=== PATIENT | female | born 1985 | race African-American/Black ===

== ENCOUNTER 2016-05-07 18:11 | Emergency (ER) | payer MEDICAID ==
[~2016-05-07] VITALS: Ht 154.9 cm; Wt 100.0 kg
[~2016-05-07 18:11] MED LIST: HYDR-3533 PO; SSD1CRE TOP
[2016-05-07 18:13] VITALS: BP 149/84; PULSE 80; RESP 16; TEMP 98.2; O2SAT 100
[2016-05-07] MEDS ORDERED: MULTTAB67 PO (22:41)
[2016-05-07 23:51] LABS: BACTERIA, URINE RARE /hpf; BLOOD, URINE MOD (NEG); COMMENT (UR) CULTURE INDICATED; CULTURE IF INDICATED CULTURE INDICATED; GLUCOSE,URINE NEG (NEG); HYALINE CAST, URINE 2 /lpf (RARE); KETONE, URINE TRACE mg/dL (NEG); MUCUS URINE FEW /lpf (OCC); NITRITE,URINE NEG (NEG); PH, URINE 5.5 (5.0-8.5); SQUAMOUS EPITHELIAL CELL URINE 1 /hpf (0-5); URINE COLOR YELLOW (YELLW/STRAW)
[2016-05-08 00:21] LABS: BETA HCG QUANT 2953 MIU/ML (0-5)
--- NOTE | 2016-05-08 00:36 | PD ---
HPI Chief Complaint: Related Problem Time Seen by Provider: 22:53 Travel History International Travel<30 days: No Contact w/Intl Traveler<30days: No Traveled to known affect area: No History of Present Illness HPI So 30 year-old woman presents to the emergency department complaining of some mild bright red blood per vagina. She is 7 para 3, 0, 3, 3 with 2 previous miscarriages and 1 . Last menstrual period was March 12. States she's had spotting, worse after sex, past several days. She also some mid back pain. No vaginal discharge. She otherwise had been feeling generally well and healthy. History Past Medical History Narrative Medical Rh+ Influenza Vaccination: No LMP: 03/12/16 : 5 Para: 2 Social History Alcohol Use: No Tobacco Use: Yes ( smoke 1/2 PPD) Allergies-Medications (Allergen,Severity, Reaction): Coded Allergies: No Known Allergies (Verified , 05/07/16) Reported Meds & Prescriptions Reported Meds & Active Scripts Active Reported Multiple Vitamin 1 Tab 1 Tab PO DAILY Review of Systems Except as stated in HPI: all other systems reviewed are Neg Physical Exam Narrative GENERAL: Well-appearing 30 year-old woman, no acute distress. SKIN: Warm and dry. NECK: Trachea midline. No JVD. CARDIOVASCULAR: Regular rate and rhythm. No murmur appreciated. RESPIRATORY: No accessory muscle use. Clear to auscultation. Breath sounds equal bilaterally. GASTROINTESTINAL: Abdomen soft, non-tender, nondistended. Hepatic and splenic margins not palpable. MUSCULOSKELETAL: No obvious deformities. No edema. NEUROLOGICAL: Awake and alert. No obvious cranial nerve deficits. Motor grossly within normal limits. Normal speech. PSYCHIATRIC: Appropriate mood and affect; insight and judgment normal. PELVIC: Normal normal external female genitalia. Dark blood in the vaginal vault. No significant tenderness. Minimal uterine enlargement. Data Data Last Documented VS Vital Signs Date Time Temp Pulse Resp B/P Pulse Ox O2 Delivery O2 Flow Rate FiO2 05/07/16 18:13 98.2 80 16 149/84 100 Orders Beta Hcg (Quant/Titer) (05/07/16 22:34) Gc And Chlamydia Pcr (05/07/16 22:34) Wet Prep Profile (05/07/16 22:34) Urinalysis - C+S If Indicated (05/07/16 22:34) Ed Poc Ultrasound (05/07/16 22:34) Urine Culture (05/07/16 22:40) Labs Laboratory Tests Test 05/07/16 05/07/16 22:40 23:33 Urine Color YELLOW Urine Turbidity CLEAR Urine pH 5.5 Urine Specific [place] 1.028 Urine Protein NEG mg/dL Urine Glucose (UA) NEG mg/dL Urine Ketones TRACE mg/dL Urine Occult Blood MOD Urine Nitrite NEG Urine Bilirubin NEG Urine Urobilinogen LESS THAN 2.0 MG/DL Urine Leukocyte Esterase MOD Urine RBC 7 /hpf Urine WBC 9 /hpf Urine Squamous Epithelial 1 /hpf Cells Urine Bacteria RARE /hpf Urine Hyaline Casts 2 /lpf Urine Mucus FEW /lpf Microscopic Urinalysis Comment CULTURE INDICATED Human Chorionic Gonadotropin, 2953 MIU/ML Quant Clue Cells (Wet Prep) PRESENT Vaginal Trichomonas (Wet Prep) PRESENT Vaginal Yeast (Wet Prep) NONE SEEN MDM Medical Decision Making Medical Screen Exam Complete: Yes Emergency Medical Condition: Yes Interpretation(s) LABS: UA with some pyuria and hematuria. HCG 2953 What prep positive for clue cells, Trichomonas GC and chlamydia pending Differential Diagnosis IUP, ectopic, miscarriage, cervicitis, trichomoniasis, other Narrative Course Medical decision-making new para 30 year-old woman presents emergent from with some spotting, and the setting of being about 78 weeks . She looks overall well. Bedside ultrasound shows probable intrauterine gestation, without definite yolk sac or pole. She is positive for trichomonas. Recommend repeat labs in 48 hours. Diagnosis Primary Impression: Additional Impression: Trichomoniasis Additional Instructions: Return the emergency department 48 hours for repeat hCG. Follow-up with your project management advisor. Return to the emergency department sooner for any new or worsening symptoms. Med/Other Pt SpecificInfo: Prescription(s) given Disposition: 01 DISCHARGE HOME Condition: Stable Craig Dillard MD May 08, 2016 00:36
[2016-05-08] MEDS ORDERED: metroNIDAZOLE 500 MG TAB PO ONE (00:45)
[2016-05-08 03:48] LABS: CHLAMYDIA PCR NOT DETECTED (NOT DETECT); NEISSERIA PCR NOT DETECTED (NOT DETECT)
== END 2016-05-08 01:03 | disposition home or self-care (01) ==
LOC: NEPE 18:11
DX: O26.851 Spotting complicating pregnancy, first trimester (principal); A59.9 Trichomoniasis, unspecified; F17.210 Nicotine dependence, cigarettes, uncomplicated; R82.90 Unspecified abnormal findings in urine
CPT/HCPCS: 81001; 84702; 87086; 87210; 87491; 87591; 99284

== ENCOUNTER 2016-08-13 11:33 | Emergency (ER) | payer MEDICAID ==
[~2016-08-13] VITALS: Ht 154.9 cm; Wt 105.0 kg
[~2016-08-13 11:33] MED LIST changes: -HYDR-3533 PO; +MULTTAB67 PO; -SSD1CRE TOP
[2016-08-13 11:36] VITALS: BP 113/60; PULSE 85; TEMP 98.5; O2SAT 99
--- NOTE | 2016-08-13 11:50 | PD ---
HPI Chief Complaint: Product Line Manager Problem/Complaint Time Seen by Provider: 11:49 Travel History International Travel<30 days: No Contact w/Intl Traveler<30days: No Traveled to known affect area: No History of Present Illness HPI 30-year-old female came to the emergency room with history of spotting on and off for past 1 week. Patient did a home test one month ago and is positive. She does not see her OB till next week. Patient says one week ago she had started spotting but after 2 days it stopped. Last night she had vaginal intercourse this morning noticed slight pink vaginal discharge. She was concerned regarding the since she had a miscarriage 4 months ago. Patient is A3. Her last menstrual cycle was May 26. No history of cramping. She is otherwise a healthy person. Vital signs were within normal limits. [facility] Past Medical History Narrative Medical List of her past medical, surgical, social and family history is reviewed from the nursing note. Asthma: Yes Autoimmune Disease: No Anxiety: Yes Cancer: No Chemotherapy: No Diabetes: No Diminished Hearing: No Immune Disorder: No Implanted Vascular Access Dvce: No Radiation Therapy: No ?: : 5 Para: 2 Miscarriage: 2 : 0 Past Surgical History AICD: No Arteriovenous Shunt: No Cholecystectomy: Yes Insulin Pump: No Joint Replacement: No Pacemaker: No Social History Alcohol Use: No Tobacco Use: Yes ( smoke 1/2 PPD) Substance Use: No Allergies-Medications (Allergen,Severity, Reaction): Coded Allergies: No Known Allergies (Verified , 08/13/16) Comments No known drug allergies. Reported Meds & Prescriptions Reported Meds & Active Scripts Active Dha (Docosahexaenoic Acid) 200 Mg Cap 1 Tab PO DAILY Narrative Medication List of her home medications reviewed from the nursing note. Review of Systems Except as stated in HPI: all other systems reviewed are Neg Physical Exam Narrative GENERAL: Awake, alert, no obvious distress SKIN: Focused skin assessment warm/dry. HEAD: Atraumatic. Normocephalic. EYES: Pupils equal and round. No scleral icterus. No injection or drainage. ENT: No nasal bleeding or discharge. Mucous membranes pink and moist. NECK: Trachea midline. No JVD. CARDIOVASCULAR: Regular rate and rhythm. No murmur appreciated. RESPIRATORY: No accessory muscle use. Clear to auscultation. Breath sounds equal bilaterally. GASTROINTESTINAL: Abdomen soft, non-tender, nondistended. Hepatic and splenic margins not palpable. MUSCULOSKELETAL: No obvious deformities. No clubbing. No cyanosis. No edema. NEUROLOGICAL: Awake and alert. No obvious cranial nerve deficits. Motor grossly within normal limits. Normal speech. PSYCHIATRIC: Appropriate mood and affect; insight and judgment normal. Data Data Last Documented VS Vital Signs Date Time Temp Pulse Resp B/P Pulse Ox O2 Delivery O2 Flow Rate FiO2 08/13/16 11:36 98.5 85 113/60 99 Orders Beta Hcg (Quant/Titer) (08/13/16 12:15) Complete Blood Count With Diff (08/13/16 12:15) Basic Metabolic Panel (Bmp) (08/13/16 12:15) Type And Screen (08/13/16 12:15) Urinalysis - C+S If Indicated (08/13/16 12:15) Ed Poc Ultrasound (08/13/16 12:18) Labs Laboratory Tests Test 08/13/16 08/13/16 12:45 13:03 Urine Color YELLOW Urine Turbidity HAZY Urine pH 7.0 Urine Specific [place] 1.024 Urine Protein TRACE mg/dL Urine Glucose (UA) NEG mg/dL Urine Ketones NEG mg/dL Urine Occult Blood MOD Urine Nitrite NEG Urine Bilirubin NEG Urine Urobilinogen LESS THAN 2.0 MG/DL Urine Leukocyte Esterase NEG Urine RBC LESS THAN 1 /hpf Urine WBC LESS THAN 1 /hpf Urine Squamous Epithelial 3 /hpf Cells Urine Mucus FEW /lpf Microscopic Urinalysis Comment CULT NOT INDICATED White Blood Count 7.3 TH/MM3 Red Blood Count 4.70 MIL/MM3 Hemoglobin 12.5 GM/DL Hematocrit 38.0 % Mean Corpuscular Volume 80.7 FL Mean Corpuscular Hemoglobin 26.5 PG Mean Corpuscular Hemoglobin 32.8 % Concent Red Cell Distribution Width 14.5 % Platelet Count 162 TH/MM3 Mean Platelet Volume 10.3 FL Neutrophils (%) (Auto) 57.3 % Lymphocytes (%) (Auto) 33.4 % Monocytes (%) (Auto) 6.3 % Eosinophils (%) (Auto) 2.5 % Basophils (%) (Auto) 0.5 % Neutrophils # (Auto) 4.2 TH/MM3 Lymphocytes # (Auto) 2.5 TH/MM3 Monocytes # (Auto) 0.5 TH/MM3 Eosinophils # (Auto) 0.2 TH/MM3 Basophils # (Auto) 0.0 TH/MM3 CBC Comment DIFF FINAL Differential Comment Sodium Level 137 MEQ/L Potassium Level 3.8 MEQ/L Chloride Level 106 MEQ/L Carbon Dioxide Level 25.9 MEQ/L Anion Gap 5 MEQ/L Blood Urea Nitrogen 8 MG/DL Creatinine 0.58 MG/DL Estimat Glomerular Filtration 146 ML/MIN Rate Random Glucose 81 MG/DL Calcium Level 8.9 MG/DL Human Chorionic Gonadotrop[place], [address]19 MIU/ML Quant Blood Type B POSITIVE Antibody Screen NEGATIVE MDM Medical Decision Making Medical Screen Exam Complete: Yes Emergency Medical Condition: Yes Medical Record Reviewed: Yes Differential Diagnosis Threatened miscarriage, ectopic Narrative Course 2 PM blood test results were back and within normal limit. Patient is B+ and hence does not need RhoGAM. I explained to her about the diagnosis of threatened miscarriage. She was recommended to return to the ER 48 hours later to get a repeat beta hCG done. I answered all her questions to the best of my ability. Patient will be discharged home. Procedures Procedure Narrative Emergency Department Pelvic ultrasound was performed with patient consent. The curvilinear probe was used in the transverse and sagittal views within the suprapubic region revealing single, live intrauterine . heart rate was 169 bpm. See this measures 8 weeks 2 days by crown rump length. EKG Prior to Arrival: No Diagnosis Primary Impression: Threatened miscarriage Additional Impression: First trimester Referrals: Primary Care Physician Additional Instructions: Please return to the emergency room in 48 hours to get a repeat beta hCG blood test done. Follow-up with your OB. Take the medication as per the prescription direction. No tampons, vaginal intercourse or anything in the vagina until you have been seen by the OB. Do not lift anything heavy, drink lots of fluid. Med/Other Pt SpecificInfo: Prescription(s) given Scripts Docosahexaenoic Acid ( Dha)200 Mg Cap1 Tab PO DAILY #30 Prov:Kj Selby MD 08/13/16 Disposition: 01 DISCHARGE HOME Condition: Stable Kj Selby MD August 13, 2016 11:50
[2016-08-13 13:28] LABS: AUTOMATED NEUTROPHIL # 4.2 TH/MM3 (1.8-7.7); BASOPHIL % 0.5 % (0.0-2.0); EOSINOPHIL # 0.2 TH/MM3 (0-0.4); EOSINOPHIL % 2.5 % (0.0-4.0); HEMO FLAGS DIFF FINAL; LYMPH % 33.4 % (9.0-44.0); LYMPHOCYTE # 2.5 TH/MM3 (1.0-4.8); MEAN CELL VOLUME 80.7 FL (80.0-100.0); MEAN CORPUSCULAR HEMOGLOBIN 26.5 PG (27.0-34.0); MEAN CORPUSCULAR HGB CONC 32.8 % (32.0-36.0); MONO % 6.3 % (0.0-8.0); NEUT % 57.3 % (16.0-70.0); PLATELET COUNT 162 TH/MM3 (150-450); RED CELL DISTRIBUTION WIDTH 14.5 % (11.6-17.2); WHITE BLOOD COUNT 7.3 TH/MM3 (4.0-11.0)
[2016-08-13 13:32] LABS: BLOOD, URINE MOD (NEG); GLUCOSE,URINE NEG (NEG); KETONE, URINE NEG (NEG); MUCUS URINE FEW /lpf (OCC); NITRITE,URINE NEG (NEG); SQUAMOUS EPITHELIAL CELL URINE 3 /hpf (0-5); URINE COLOR YELLOW (YELLW/STRAW)
[2016-08-13 13:35] LABS: COMMENT (UR) CULT NOT INDICATED; CULTURE IF INDICATED CULT NOT INDICATED
[2016-08-13 13:46] LABS: BICARBONATE 25.9 MEQ/L (21.0-32.0); POTASSIUM 3.8 MEQ/L (3.5-5.1)
[2016-08-13] MEDS ORDERED: DOCO200C PO (14:15)
== END 2016-08-13 14:24 | disposition home or self-care (01) ==
LOC: NEPD 11:33
DX: O20.0 Threatened abortion (principal); F17.200 Nicotine dependence, unspecified, uncomplicated; J45.909 Unspecified asthma, uncomplicated; Z3A.08 8 weeks gestation of pregnancy
CPT/HCPCS: 80048; 81001; 84702; 85025; 86850; 86900; 86901; 99284

== ENCOUNTER 2017-01-14 14:25 | Emergency (ER) | payer MEDICAID ==
[~2017-01-14] VITALS: Ht 154.9 cm; Wt 100.0 kg
[~2017-01-14 14:25] MED LIST changes: +DOCO200C PO; -MULTTAB67 PO
[2017-01-14 14:28] VITALS: BP 144/99; PULSE 79; RESP 15; TEMP 98.4; O2SAT 98
--- NOTE | 2017-01-14 15:07 | PD ---
HPI Chief Complaint: Headache Time Seen by Provider: 15:07 Travel History International Travel<30 days: No Contact w/Intl Traveler<30days: No Traveled to known affect area: No History of Present Illness HPI 31-year-old female came to the emergency room with history of headache. Patient says it hurts everywhere especially the top and front of her head. The headache has been there for 5 days. It started off slowly and now everything hurts. She complains of photophobia. No fever or chills. No history of nausea vomiting. No history of neck stiffness. Patient does not get headaches very frequently. Vital signs were stable. Upon asking she said there could be a chance of being . [facility] Past Medical History Narrative Medical List of her past medical, surgical, social and family history is reviewed from the nursing note. Asthma: Yes (as a child) Autoimmune Disease: No Anxiety: Yes Cancer: No Chemotherapy: No Diabetes: No Diminished Hearing: No Immune Disorder: No Implanted Vascular Access Dvce: No Radiation Therapy: No ?: Unknown LMP: NOV 27, 2016 : 5 Para: 2 Miscarriage: 2 : 0 Past Surgical History AICD: No Arteriovenous Shunt: No Cholecystectomy: Yes Insulin Pump: No Joint Replacement: No Pacemaker: No Social History Alcohol Use: No Tobacco Use: Yes ( smoke 1/2 PPD) Substance Use: No Allergies-Medications (Allergen,Severity, Reaction): Coded Allergies: No Known Allergies (Verified , 01/14/17) Comments No known drug allergies. Reported Meds & Prescriptions Reported Meds & Active Scripts Active No Active Prescriptions or Reported Medications Narrative Medication List of her home medications reviewed from the nursing note. Review of Systems Except as stated in HPI: all other systems reviewed are Neg Neurologic: Positive: Headache Physical Exam Narrative GENERAL: Awake, alert, mild distress SKIN: Focused skin assessment warm/dry. HEAD: Atraumatic. Normocephalic. EYES: Pupils equal and round. No scleral icterus. No injection or drainage. ENT: No nasal bleeding or discharge. Mucous membranes pink and moist. NECK: Trachea midline. No JVD. Neck is supple. No signs of meningismus CARDIOVASCULAR: Regular rate and rhythm. No murmur appreciated. RESPIRATORY: No accessory muscle use. Clear to auscultation. Breath sounds equal bilaterally. GASTROINTESTINAL: Abdomen soft, non-tender, nondistended. Hepatic and splenic margins not palpable. MUSCULOSKELETAL: No obvious deformities. No clubbing. No cyanosis. No edema. NEUROLOGICAL: Awake and alert. No obvious cranial nerve deficits. Motor grossly within normal limits. Normal speech. PSYCHIATRIC: Appropriate mood and affect; insight and judgment normal. Data Data Last Documented VS Orders Orders Complete Blood Count With Diff (01/14/17 15:41) Basic Metabolic Panel (Bmp) (01/14/17 15:41) Beta Hcg (Quant/Titer) (01/14/17 15:41) Ecg Monitoring (01/14/17 15:41) Iv Access Insert/Monitor (01/14/17 15:41) Oximetry (01/14/17 15:41) Sodium Chloride 0.9% Flush (Ns Flush) (01/14/17 15:45) Prochlorperazine Inj (Compazine Inj) (01/14/17 15:45) Sodium Chlor 0.9% 1000 Ml Inj (Ns 1000 M (01/14/17 15:41) Diphenhydramine Inj (Benadryl Inj) (01/14/17 16:15) Ed Discharge Order (01/14/17 16:40) Labs Laboratory Tests Test 01/14/17 16:00 White Blood Count 7.7 TH/MM3 Red Blood Count 5.36 MIL/MM3 Hemoglobin 14.1 GM/DL Hematocrit 42.9 % Mean Corpuscular Volume 80.1 FL Mean Corpuscular Hemoglobin 26.2 PG Mean Corpuscular Hemoglobin Concent 32.8 % Red Cell Distribution Width 15.7 % Platelet Count 161 TH/MM3 Mean Platelet Volume 10.0 FL Neutrophils (%) (Auto) 64.5 % Lymphocytes (%) (Auto) 27.5 % Monocytes (%) (Auto) 5.5 % Eosinophils (%) (Auto) 1.9 % Basophils (%) (Auto) 0.6 % Neutrophils # (Auto) 4.9 TH/MM3 Lymphocytes # (Auto) 2.1 TH/MM3 Monocytes # (Auto) 0.4 TH/MM3 Eosinophils # (Auto) 0.1 TH/MM3 Basophils # (Auto) 0.0 TH/MM3 CBC Comment DIFF FINAL Differential Comment Blood Urea Nitrogen 7 MG/DL Creatinine 0.68 MG/DL Random Glucose 80 MG/DL Calcium Level 8.7 MG/DL Sodium Level 138 MEQ/L Potassium Level 4.2 MEQ/L Chloride Level 107 MEQ/L Carbon Dioxide Level 27.6 MEQ/L Anion Gap 3 MEQ/L Estimat Glomerular Filtration Rate 121 ML/MIN Human Chorionic Gonadotropin, Quant LESS THAN 1 MIU/ML MDM Medical Decision Making Medical Screen Exam Complete: Yes Emergency Medical Condition: Yes Medical Record Reviewed: Yes Differential Diagnosis Status migrainous, tension headache, dehydration, electrolyte abnormality, Narrative Course 4:40 PM blood test results are within normal limit. Patient was given IV fluid bolus and Compazine. She started having some akathisia from the Compazine. She was given Benadryl to counteract. Patient says she feels better and is ready to go home. I have discharged her. Procedures EKG Prior to Arrival: No Diagnosis Primary Impression: Headache Qualified Codes: R51 - Headache Referrals: Primary Care Physician Additional Instructions: Follow-up with your physician. Try to stay away from alcohol especially wine and cigarettes. Food-like cheese, chocolate will make your migraine worse. Patient to sleep more for the next couple days. Caffeinated beverages like coffee out of for you. Do not watch television, computer screen, Smart phone etc. since it will stimulate the eyes and the brain and will make the headache worse. Return to the ER if the condition worsens or any other new concerns. Med/Other Pt SpecificInfo: No Change to Meds Scripts No Active Prescriptions or Reported Meds Disposition: 01 DISCHARGE HOME Condition: Stable Kj Selby MD Jan 14, 2017 15:07
[2017-01-14 15:09] VITALS: BP 146/83; PULSE 70; RESP 16; O2SAT 100
[2017-01-14] MEDS ORDERED: SODIUM CHLOR 0.9% 1000 ML INJ 1,000 ML IV ONE (15:41)
[2017-01-14] MEDS ORDERED: SODIUM CHLORIDE 0.9% FLUSH 10 ML FLUSH IVF PRN (15:45)
[2017-01-14] MEDS ORDERED: PROCHLORPERAZINE INJ 10 MG/2 ML VIAL IVP ONE (15:45)
[2017-01-14 16:08] VITALS: BP 137/82; PULSE 63; RESP 16; O2SAT 100
[2017-01-14] MEDS ORDERED: diphenhydrAMINE HCL 50 MG/ML VIAL IV PUSH ONE (16:15)
[2017-01-14 16:20] LABS: AUTOMATED NEUTROPHIL # 4.9 TH/MM3 (1.8-7.7); BASOPHIL % 0.6 % (0.0-2.0); EOSINOPHIL # 0.1 TH/MM3 (0-0.4); EOSINOPHIL % 1.9 % (0.0-4.0); HEMATOCRIT 42.9 % (35.0-46.0); HEMO FLAGS DIFF FINAL; LYMPH % 27.5 % (9.0-44.0); LYMPHOCYTE # 2.1 TH/MM3 (1.0-4.8); MEAN CELL VOLUME 80.1 FL (80.0-100.0); MEAN CORPUSCULAR HEMOGLOBIN 26.2 PG (27.0-34.0); MEAN CORPUSCULAR HGB CONC 32.8 % (32.0-36.0); MONO % 5.5 % (0.0-8.0); NEUT % 64.5 % (16.0-70.0); PLATELET COUNT 161 TH/MM3 (150-450); RED BLOOD COUNT 5.36 MIL/MM3 (4.00-5.30); RED CELL DISTRIBUTION WIDTH 15.7 % (11.6-17.2); WHITE BLOOD COUNT 7.7 TH/MM3 (4.0-11.0)
[2017-01-14 16:35] LABS: ANION GAP 3 MEQ/L (5-15); BICARBONATE 27.6 MEQ/L (21.0-32.0); BLOOD UREA NITROGEN 7 MG/DL (7-18); CHLORIDE 107 MEQ/L (98-107); GLOMERULAR FILTRATION RATE 121 ML/MIN (>89); POTASSIUM 4.2 MEQ/L (3.5-5.1); SODIUM (NA) 138 MEQ/L (136-145)
[2017-01-14 16:39] LABS: BETA HCG QUANT LESS THAN 1 MIU/ML (0-5)
== END 2017-01-14 16:48 | disposition home or self-care (01) ==
LOC: NEPD 14:25
DX: R51 Headache (principal); F17.210 Nicotine dependence, cigarettes, uncomplicated
CPT/HCPCS: 80048; 84702; 85025; 96361; 96374; 96375; 99284; J0780; J1200; J7030

== ENCOUNTER 2017-04-08 20:47 | Emergency (ER) | payer MEDICAID ==
[~2017-04-08] VITALS: Ht 154.9 cm; Wt 94.1 kg
[2017-04-08 20:50] VITALS: BP 150/79; PULSE 71; RESP 16; TEMP 98.6; O2SAT 97
[2017-04-09] MEDS ORDERED: ONDANSETRON HCL 4 MG/2 ML VIAL IV PUSH ONE
[2017-04-09] MEDS ORDERED: ALUMINUM/MAGNESIUM/SIMETH 30 ML CUP PO ONE
[2017-04-09] MEDS ORDERED: SODIUM CHLOR 0.9% 1000 ML INJ 1,000 ML IV ONE ×2 (01:00)
[2017-04-09] MEDS ORDERED: ZOFR4TAB3 SL (02:38)
--- NOTE | 2017-04-09 02:38 | PD ---
HPI . GI complaint Chief Complaint: GI Complaint Time Seen by Provider: 23:37 Travel History International Travel<30 days: No Contact w/Intl Traveler<30days: No Traveled to known affect area: No History of Present Illness HPI 31-year-old female who is approximately 12 weeks , undergoing care, notes history of hyperemesis gravidarum with prior pregnancies, complains of having nausea vomiting intolerance of by mouth during this . Patient denies any fevers chills sweats denies any lower abdominal pain, denies vaginal bleeding or discharge. PFSH Past Medical History Narrative Medical Past medical history reviewed. See history of present illness Asthma: Yes (as a child) Autoimmune Disease: No Anxiety: Yes Cancer: No Chemotherapy: No Diabetes: No Diminished Hearing: No Immune Disorder: No Implanted Vascular Access Dvce: No Radiation Therapy: No ?: : 5 Para: 2 Miscarriage: 2 : 1 Past Surgical History AICD: No Arteriovenous Shunt: No Cholecystectomy: Yes Insulin Pump: No Joint Replacement: No Pacemaker: No Social History Alcohol Use: No (OCCASIONALLY) Tobacco Use: Yes (03/31PPD) Substance Use: Yes ( MARIJUAN ) Allergies-Medications (Allergen,Severity, Reaction): Coded Allergies: No Known Allergies (Verified , 01/14/17) Reported Meds & Prescriptions Reported Meds & Active Scripts Active No Active Prescriptions or Reported Medications Narrative Medication Allergies and medications reviewed Review of Systems Except as stated in HPI: all other systems reviewed are Neg General / Constitutional: No: Fever Eyes: No: Visual changes HENT: No: Headaches Cardiovascular: No: Chest Pain or Discomfort Respiratory: No: Shortness of Breath Gastrointestinal: Positive: Nausea, Vomiting, No: Abdominal Pain Genitourinary: No: Dysuria Musculoskeletal: No: Pain Skin: No Rash Neurologic: No: Weakness Psychiatric: No: Depression Endocrine: No: Polydipsia Hematologic/Lymphatic: No: Easy Bruising Physical Exam Narrative GENERAL: Awake alert oriented 3 no acute distress. Smiling and pleasant. Vital signs afebrile normal and stable SKIN: Warm and dry. Color is normal no diaphoresis cyanosis or pallor HEAD: Atraumatic. Normocephalic. EYES: Pupils equal and round. No scleral icterus. No injection or drainage. ENT: No nasal bleeding or discharge. Mucous membranes pink and moist. NECK: Trachea midline. No JVD. CARDIOVASCULAR: Regular rate and rhythm. RESPIRATORY: No accessory muscle use. Clear to auscultation. Breath sounds equal bilaterally. GASTROINTESTINAL: Abdomen soft, non-tender, nondistended. Hepatic and splenic margins not palpable. Moderately obese MUSCULOSKELETAL: Extremities without clubbing, cyanosis, or edema. No obvious deformities. NEUROLOGICAL: Awake and alert. No obvious cranial nerve deficits. Motor grossly within normal limits. Five out of 5 muscle strength in the arms and legs. Normal speech. PSYCHIATRIC: Appropriate mood and affect; insight and judgment normal. Data Data Last Documented VS Vital Signs Date Time Temp Pulse Resp B/P (MAP) Pulse Ox O2 Delivery O2 Flow Rate FiO2 04/08/17 20:50 98.6 71 16 150/79 (102) 97 Orders Orders Iv Access Insert/Monitor (04/08/17 23:53) Sodium Chlor 0.9% 1000 Ml Inj (Ns 1000 M (04/09/17 00:00) Ondansetron Inj (Zofran Inj) (04/09/17 00:00) Al-Mag Hy-Si 40-40-4 Mg/Ml Liq (Mag-Al P (04/09/17 00:00) Sodium Chlor 0.9% 1000 Ml Inj (Ns 1000 M (04/09/17 01:00) MDM Medical Decision Making Medical Screen Exam Complete: Yes Emergency Medical Condition: Yes Medical Record Reviewed: Yes Differential Diagnosis Hyperemesis gravidarum dehydration Narrative Course Patient markedly improved with IV fluids. Patient tolerating by mouth. Patient left with verbal instructions prior to written instructions secondary to concomitant code happening in echo positive. Patient appreciated to for her care Diagnosis Primary Impression: Hyperemesis gravidarum Additional Impression: Dehydration Patient Instructions: Dehydration (ED), General Instructions, Hyperemesis Gravidarum (ED) Additional Instructions: Drink plenty of fluids, advance diet slowly as tolerated. Zofran 4 mg ODT dissolver the tongue every 4-6 hours as needed for nausea. Follow-up with your TRIAGE RN. Return for worsening Scripts Ondansetron Odt (Zofran Odt) 4 Mg Tab 4 MG SL Q6HR Y for Nausea/Vomiting, #30 TAB 0 Refills Prov: [place] MD 04/09/17 Disposition: 01 DISCHARGE HOME Condition: Stable [place] MD Apr 09, 2017 02:38
== END 2017-04-09 00:38 | disposition home or self-care (01) ==
LOC: NEPE 20:47
DX: O21.0 Mild hyperemesis gravidarum (principal); O99.281 Endocrine, nutritional and metabolic diseases complicating pregnancy, first trimester; E86.0 Dehydration; O99.331 Smoking (tobacco) complicating pregnancy, first trimester; F17.200 Nicotine dependence, unspecified, uncomplicated; O99.321 Drug use complicating pregnancy, first trimester; F12.90 Cannabis use, unspecified, uncomplicated; Z3A.12 12 weeks gestation of pregnancy
CPT/HCPCS: 96374; 99284; J2405; J7030

== ENCOUNTER 2017-05-06 08:59 | Emergency (ER) | payer MEDICAID ==
[~2017-05-06 08:59] MED LIST changes: -DOCO200C PO; +ZOFR4TAB3 SL
--- NOTE | 2017-05-06 09:55 | PD ---
HPI Chief Complaint decreased movement Date Seen: May 06, 2017 Time Seen: 09:20 Travel History International Travel<30 Days: No Contact w/Intl Traveler<30Days: No Known Affected Area: No History of Present Illness HPI Mrs. Ramon is a 31-year-old at 18/4 weeks gestation presenting with concerns about decreased movement. Patient states that she sometimes feels tiny movements but has not felt anything in the past few days. She is having abdominal pain in her epigastric region along with lower abdominal pain. She does endorse symptoms of heartburn along with a sour taste in her mouth. No vaginal bleeding, no leakage of fluids, no contractions, no dysuria. 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 Denies alcohol and illicit drug use, quit alcohol and marijuana when she found out she was Smokes 3 cigarettes a day and is currently in the process of quitting Alcohol Use: No Tobacco Use: Yes Substance Abuse: No Allergies-Medications (Allergen,Severity, Reaction): Coded Allergies: No Known Allergies (Verified , 01/14/17) Home Meds Active Scripts Ondansetron Odt (Zofran Odt) 4 Mg Tab, 4 MG SL Q6HR Y for Nausea/Vomiting, #30 TAB 0 Refills Prov:Berlin Mills MD 04/09/17 Review of Systems General / Constitutional: No: Fever Eyes: No: Blurred Vision HENT: No: Headaches Cardiovascular: No: Chest Pain or Discomfort, Palpitations Respiratory: No: Cough, Short of Breath Genitourinary: No: Dysuria Skin: No Rash Neurologic: No: Weakness, Dizziness Physical Exam Narrative GENERAL: Well-nourished, well-developed patient. SKIN: Warm and dry. HEAD: Normocephalic and atraumatic. EYES: No scleral icterus. No injection or drainage. ENT: No nasal drainage noted. Mucous membranes pink. Airway patent. NECK: Supple, trachea midline. No JVD. CARDIOVASCULAR: Regular rate and rhythm without murmurs, gallops, or rubs. RESPIRATORY: Breath sounds equal bilaterally. No accessory muscle use. BREASTS: Bilateral exam showed no masses , no retractions, no nipple discharge. ABDOMEN/GI: Abdomen soft, non-tender, bowel sounds present, no rebound, no guarding Gravid to 18 weeks size Doppler: HR 150s EXTREMITIES: No cyanosis or edema. BACK: Nontender without obvious deformity. No CVA tenderness. NEUROLOGICAL: Awake and alert. Motor and sensory grossly within normal limits. Five out of 5 muscle strength in all muscle groups. Normal speech. Data Data Vital Signs Reviewed: Yes MDM Plan Ms. Ramon is a at 18/4 weeks gestation presenting with concerns about decreased movement. Doppler shows heart rate in the 150s. -Urine dip is negative for nitrites and leukocyte esterase -Reassured patient that due to baby's size at 18 gestation that she may not feel any movement or very little at this stage -Encouraged her to hydrate with water to prevent dehydration and cramping -Encouraged and advised her to quit smoking Diagnosis Diagnosis: Primary Impression: 18 weeks gestation of Disposition: 01 DISCHARGE HOME Condition: Stable Mariel Rivera MD R1 May 06, 2017 09:55
== END 2017-05-06 09:59 | disposition home or self-care (01) ==
LOC: HOBED 08:59
DX: O26.892 Other specified pregnancy related conditions, second trimester (principal); R10.13 Epigastric pain; R10.30 Lower abdominal pain, unspecified; O99.332 Smoking (tobacco) complicating pregnancy, second trimester; Z34.92 Encounter for supervision of normal pregnancy, unspecified, second trimester; Z3A.18 18 weeks gestation of pregnancy
CPT/HCPCS: 99283

== ENCOUNTER 2017-06-21 15:35 | Emergency (ER) | payer MEDICAID ==
[~2017-06-21] VITALS: Ht 154.9 cm; Wt 100.0 kg
[2017-06-21 15:48] VITALS: BP 150/70; PULSE 117; RESP 22; TEMP 98.1; O2SAT 95
[2017-06-21 16:10] VITALS: RESP 22; O2SAT 97
--- NOTE | 2017-06-21 16:12 | PD ---
HPI Chief Complaint: Respiratory Distress Time Seen by Provider: 16:01 Travel History International Travel<30 days: No Contact w/Intl Traveler<30days: No Traveled to known affect area: No History of Present Illness HPI The patient was seen and examined in the presence of the nurse. This patient complains of wheezing and congestion and shortness of breath. She felt fine today until she was cleaning her bathroom with some bleach cleaning products. She breathed and fumes and started to get wheezing and shortness of breath. She called the ambulance. She is 26 weeks . She received IV Solu- Medrol and a breathing treatment in route. She denies fever. Symptoms severity is moderate. She was fine prior to the breathing the bleach fumes. No fever or productive cough. No alleviating factors. Symptoms exacerbated by the bleach product PFSH Past Medical History Asthma: Yes (as a child) Autoimmune Disease: No Anxiety: Yes Cancer: No Chemotherapy: No Diabetes: No Diminished Hearing: No Immune Disorder: No Implanted Vascular Access Dvce: No Radiation Therapy: No Tetanus Vaccination: > 5 Years Influenza Vaccination: No ?: : 6 Para: 2 Miscarriage: 2 : 1 Past Surgical History AICD: No Arteriovenous Shunt: No Cholecystectomy: Yes Insulin Pump: No Joint Replacement: No Pacemaker: No Social History Alcohol Use: No Tobacco Use: Yes Substance Use: Yes ( MARIJUANA) Allergies-Medications (Allergen,Severity, Reaction): Coded Allergies: No Known Allergies (Verified , 01/14/17) Reported Meds & Prescriptions Reported Meds & Active Scripts Active Ventolin Hfa 18 GM Inh (Albuterol Sulfate) 90 Mcg/Act Aer 2 Puff INH Q4H PRN Zofran Odt (Ondansetron Odt) 4 Mg Tab 4 Mg SL Q6HR PRN Review of Systems General / Constitutional: No: Fever Eyes: No: Visual changes HENT: Positive: Congestion, No: Headaches Cardiovascular: No: Chest Pain or Discomfort Respiratory: Positive: Shortness of Breath, Wheezing Gastrointestinal: No: Abdominal Pain Genitourinary: No: Dysuria Musculoskeletal: No: Pain Skin: No Rash Neurologic: No: Weakness Psychiatric: No: Depression Endocrine: No: Polydipsia Hematologic/Lymphatic: No: Easy Bruising Physical Exam Narrative GENERAL: Well-nourished, well-developed patient in no apparent distress. SKIN: Focused skin assessment reveals no rash and nodules. Skin is Warm and dry. HEAD: Atraumatic. Normocephalic. EYES: Pupils equal and round. No scleral icterus. No injection or drainage. ENT: No nasal bleeding or discharge. Mucous membranes pink and moist. NECK: Trachea midline. No JVD. CARDIOVASCULAR: Regular rate and rhythm. No murmur appreciated. RESPIRATORY: No accessory muscle use. Clear to auscultation. Breath sounds equal bilaterally. GASTROINTESTINAL: Abdomen soft, gravid uterus is non-tender, nondistended. Hepatic and splenic margins not palpable. MUSCULOSKELETAL: No obvious deformities. No clubbing. No cyanosis. No edema. NEUROLOGICAL: Awake and alert. No obvious cranial nerve deficits. Motor grossly within normal limits. Normal speech. PSYCHIATRIC: Appropriate mood and affect; insight and judgment normal. Data Data Last Documented VS Vital Signs Date Time Temp Pulse Resp B/P (MAP) Pulse Ox O2 Delivery O2 Flow Rate FiO2 06/21/17 16:10 22 97 Room Air 06/21/17 15:48 98.1 117 150/70 (96) Orders Orders Chest, Single Ap (06/21/17 16:07) Ecg Monitoring (06/21/17 16:07) Iv Access Insert/Monitor (06/21/17 16:07) Oximetry (06/21/17 16:07) Albuterol-Ipratropium Neb (Duoneb Neb) (06/21/17 16:15) Sodium Chloride 0.9% Flush (Ns Flush) (06/21/17 16:15) Albuterol-Ipratropium Neb (Duoneb Neb) (06/21/17 16:45) Heart Tones (06/21/17 16:49) MDM Medical Decision Making Medical Screen Exam Complete: Yes Emergency Medical Condition: Yes Medical Record Reviewed: Yes Differential Diagnosis Asthma exacerbation, chemical pneumonitis, reaction to bleach fumes Narrative Course I have reviewed the patient's electronic medical record. I gave her a nebulizer treatment She had prior received steroids in the ambulance I reviewed her chest x-ray which is normal Saturations are running 97-99% on room air I rechecked her and she is feeling improved, this even before the nebulizer treatment I wrote her an albuterol inhaler to use as needed We will hear the heart tones After nebulizer treatment she'll be stable for outpatient follow-up Diagnosis Primary Impression: Wheezing Additional Impression: Qualified Codes: Z3A.26 - 26 weeks gestation of Additional Instructions: The patient was advised to follow up with their physician and return if they worsen. Med/Other Pt SpecificInfo: Prescription(s) given Scripts Albuterol 18 GM Inh (Ventolin Hfa 18 GM Inh) 90 Mcg/Act Aer 2 PUFF INH Q4H Y for SHORTNESS OF BREATH, #1 INHALER 0 Refills Prov: Syed Damian MD 06/21/17 Disposition: 01 DISCHARGE HOME Condition: Stable Syed Damian MD Jun 21, 2017 16:12
[2017-06-21] MEDS ORDERED: SODIUM CHLORIDE 0.9% FLUSH 10 ML FLUSH IVF PRN (16:15)
[2017-06-21] MEDS: RESP: ALBUTEROL 2.5 MG/IPRATROPIUM 0.5 MG NEB (SCH) INH ×2 (16:15→16:30)
[2017-06-21] MEDS ORDERED: RESP: ALBUTEROL 2.5 MG/IPRATROPIUM 0.5 MG NEB (SCH) NEB ONE (16:45)
[2017-06-21] MEDS ORDERED: VENTAER INH (16:49)
--- NOTE | 2017-06-21 16:54 | RADRPT ---
EXAM DATE/TIME: 06/21/2017 16:22 [facility] COMPARISON: No previous studies available for comparison. INDICATIONS : Short of breath. MEDICAL HISTORY : None. SURGICAL HISTORY : None. ENCOUNTER: Initial ACUITY: 1 day PAIN SCORE: 0/10 LOCATION: Bilateral chest FINDINGS: A single view of the chest demonstrates the lungs to be symmetrically aerated without evidence of mas s, infiltrate or effusion. The cardiomediastinal contours are unremarkable. Osseous structures are intact. CONCLUSION: No acute disease. Boogie Cohn MD on June 21, 2017 at 16:52 Board Certified Radiologist. This report was verified electronically.
== END 2017-06-21 18:01 | disposition home or self-care (01) ==
LOC: NEPD 15:35
DX: O99.512 Diseases of the respiratory system complicating pregnancy, second trimester (principal); R06.2 Wheezing; O99.342 Other mental disorders complicating pregnancy, second trimester; F41.9 Anxiety disorder, unspecified; O99.332 Smoking (tobacco) complicating pregnancy, second trimester; F17.200 Nicotine dependence, unspecified, uncomplicated; Z3A.26 26 weeks gestation of pregnancy
CPT/HCPCS: 71045; 94664; 99283

== ENCOUNTER 2017-07-30 11:11 | Emergency (ER) | payer MEDICAID ==
[~2017-07-30 11:11] MED LIST changes: +VENTAER INH
[2017-07-30] MEDS ORDERED: LACTATED RINGER'S 1000 ML INJ 1,000 ML IV SCH (11:44)
[2017-07-30] MEDS ORDERED: SODIUM CHLORIDE 0.9% FLUSH 10 ML FLUSH IV FLUSH PRN (11:45)
[2017-07-30] MEDS ORDERED: BETAMETHASONE SOD PHOS/ACETATE SUSP 30 MG/5 ML VIAL IM SCH (11:45)
[2017-07-30 12:00] VITALS: TEMP 98.9
--- NOTE | 2017-07-30 12:08 | PD ---
HPI Chief Complaint Contractions Date Seen: July 30, 2017 Time Seen: 11:59 Travel History International Travel<30 Days: No Contact w/Intl Traveler<30Days: No Known Affected Area: No History of Present Illness HPI 31-year-old 7 para 3 AB 3 at 31 weeks gestation who reports the onset of contractions 2 hours ago. She denies leakage of fluid or bleeding. No vaginal discharge or irritation. No dysuria hematuria frequency. History Past Medical History Medical History: Denies Significant Hx Obstetric History Obstetric History 3 term vaginal deliveries 3 spontaneous AB Her current care with Leana Adame. She reports that she has also been seen at [facility] an abnormality of the heart Past Surgical History Narrative Surgical Cholecystectomy Family History Family History: Negative Social History Alcohol Use: No Tobacco Use: No Substance Abuse: No Allergies-Medications (Allergen,Severity, Reaction): Coded Allergies: No Known Allergies (Verified , 01/14/17) Home Meds Active Scripts Albuterol 18 GM Inh (Ventolin Hfa 18 GM Inh) 90 Mcg/Act Aer, 2 PUFF INH Q4H Y for SHORTNESS OF BREATH, #1 INHALER 0 Refills Prov:Syed Damian MD 06/21/17 Ondansetron Odt (Zofran Odt) 4 Mg Tab, 4 MG SL Q6HR Y for Nausea/Vomiting, #30 TAB 0 Refills Prov:Berlin Mills MD 04/09/17 Review of Systems Except as stated in HPI: all other systems reviewed are Neg Physical Exam Narrative GENERAL: Well-nourished, well-developed patient. SKIN: Warm and dry. HEAD: Normocephalic and atraumatic. EYES: No scleral icterus. No injection or drainage. ENT: No nasal drainage noted. Mucous membranes pink. Airway patent. NECK: Supple, trachea midline. No JVD. CARDIOVASCULAR: Regular rate and rhythm without murmurs, gallops, or rubs. RESPIRATORY: Breath sounds equal bilaterally. No accessory muscle use. ABDOMEN/GI: Abdomen soft, non-tender, bowel sounds present, no rebound, no guarding Gravid to [-] weeks size Fundal Height: [-] GENITOURINARY: External Genitalia: intact and normal in appearance BUS glands: [-Negative] Cervix: [-] Dilatation: [Closed-] Effacement: [Long-] Station: [high-] Presentation: [-] Membranes: [intact] Uterine Contractions: [Irregular-] FHT's: Category: [-1] Baseline: [-] Reactive: [-] Variability: [-] Decels: [-] EXTREMITIES: No cyanosis or edema. BACK: Nontender without obvious deformity. No CVA tenderness. NEUROLOGICAL: Awake and alert. Motor and sensory grossly within normal limits. Five out of 5 muscle strength in all muscle groups. Normal speech. Data Data Orders Orders Vital Signs (Adult) Q4H (07/30/17 11:44) Activity Bed Rest (07/30/17 11:44) Intake + Output NAZARIO.QSHIFT (07/30/17 11:44) Heart CONTINUOUS (07/30/17 11:44) Lactated Ringer's 1000 Ml Inj (Lr 1000 M (07/30/17 11:44) Sodium Chloride 0.9% Flush (Ns Flush) (07/30/17 11:45) Sodium Chloride 0.9% Flush (Ns Flush) (07/30/17 21:00) Betamethasone Inj (Celestone Soluspan In (07/30/17 11:45) Drug Screen, Random Urine (07/30/17 11:44) Physician Name Changes (07/30/17 ) Vital Signs (Adult) .ON ADMISSION (07/30/17 11:54) ^ Labor Status (07/30/17 11:54) Urinalysis - C+S If Indicated (07/30/17 11:54) ^ Non Stress Test (07/30/17 11:54) Fibronectin (07/30/17 11:54) MDM Narrative Course / MDM Assessment: 31 week intrauterine , irregular contractions Plan: FFN, UA, po hydration The fibronectin was negative, urinalysis was not suspicious for infection. The contraction activity diminished with p.o. hydration. She was discharged home with precautions. Diagnosis Diagnosis: Primary Impression: 31 weeks gestation of Additional Impression: Irregular uterine contractions Disposition: 01 DISCHARGE HOME Condition: Good Craig Vidal MD July 30, 2017 12:08
[2017-07-30 12:11] LABS: BACTERIA, URINE RARE /hpf; BILIRUBIN, URINE NEG (NEG); BLOOD, URINE NEG (NEG); GLUCOSE,URINE NEG (NEG); KETONE, URINE 10 mg/dL (NEG); MUCUS URINE MANY /lpf (OCC); NITRITE,URINE NEG (NEG); SQUAMOUS EPITHELIAL CELL URINE 3 /hpf (0-5); URINE COLOR YELLOW (YELLW/STRAW); URINE LEUKOCYTE ESTERASE NEG (NEG)
[2017-07-30] MEDS ORDERED: SODIUM CHLORIDE 0.9% FLUSH 10 ML FLUSH IV FLUSH SCH (21:00)
== END 2017-07-30 12:48 | disposition home or self-care (01) ==
LOC: HOBED 11:11
DX: O47.03 False labor before 37 completed weeks of gestation, third trimester (principal); Z3A.31 31 weeks gestation of pregnancy
CPT/HCPCS: 81001; 82731; 99284